=== PATIENT | female | born 1970 | race Caucasian/White ===

== ENCOUNTER 2022-02-22 02:08 | Emergency (ER) | payer BC ==
[~2022-02-22] VITALS: Ht 165.1 cm; Wt 99.8 kg
[2022-02-22] MEDS ORDERED: DICLOFENAC SODI75 MG PO (02:24)
--- NOTE | 2022-02-26 19:03 | EKG ---
[facility] [address] [facility] [place] [address] Signed Normal sinus rhythm Normal ECG No previous ECGs available Confirmed by MILTON CURRIE MD ([id number]) on 02/26/2022 7:03:03 PM Electronically Signed By: MILTON CURRIE MD 02/26/22 190 PATIENT NAME: HOMER AGUIRRE Electrocardiogram DATE OF : 74 PHYSICIAN: MILTON CURRIE MD REPORT #: [id number] REPORT IS CONFIDENTIAL AND NOT TO BE RELEASED WITHOUT AUTHORIZATION
== END 2022-02-22 06:00 | disposition home or self-care (01) ==
LOC: ED 02:08
DX: M25.511 Pain in right shoulder (principal); M25.512 Pain in left shoulder; Z88.1 Allergy status to other antibiotic agents
CPT/HCPCS: 36415; 71045; 71260; 80053; 84484; 85025; 85379; 93005; 93010; 99284-25; J1885; Q9967